=== PATIENT | male | born 1990 | race American Indian/Alaskan Native ===

== ENCOUNTER 2019-08-23 18:05 | Emergency (ER) | payer SELFPAY ==
[2019-08-23 19:33] VITALS: BP 124/72
--- NOTE | 2019-08-23 20:17 | Emergency Department Report ---
ED Male HPI - General Chief complaint: Urogenital-Male Stated complaint: URINE GERBER/PAIN Time Seen by Provider: 08/23/19 20:10 Source: patient Mode of arrival: Ambulatory Limitations: No Limitations - History of Present Illness MD Complaint: testicle pain, dysuria -: Gradual, days(s) (3) Location: penis Radiation: none Severity: mild Quality: aching, burning Consistency: constant Improves with: none Worsens with: none new medication discharge. denies: fever, nausea/vomiting - Related Data Sexually active: Yes Previous Rx's Medication Instructions Recorded Last Taken Type Azithromycin [Zithromax TAB] 1,000 mg PO ONCE #2 tablet 08/23/19 Unknown Rx ceFIXime [Cefixime] 400 mg PO ONCE #1 capsule 08/23/19 Unknown Rx metroNIDAZOLE [Flagyl] 2,000 mg PO ONCE #4 tablet 08/23/19 Unknown Rx Allergies Allergy/AdvReac Type Severity Reaction Status Date / Time No Known Allergies Allergy Unverified 08/23/19 18:06 ED Review of Systems ROS: Stated complaint: URINE GERBER/PAIN Other details as noted in HPI Comment: All other systems reviewed and negative ED Past Medical Hx - Past Medical History Previous Medical History?: No - Surgical History Additional Surgical History: LEFT SHOULDER - Medications Home Medications: Home Medications Medication Instructions Recorded Confirmed Last Taken Type Azithromycin [Zithromax TAB] 1,000 mg PO ONCE #2 tablet 08/23/19 Unknown Rx ceFIXime [Cefixime] 400 mg PO ONCE #1 capsule 08/23/19 Unknown Rx metroNIDAZOLE [Flagyl] 2,000 mg PO ONCE #4 tablet 08/23/19 Unknown Rx ED Physical Exam - General Limitations: No Limitations General appearance: alert, in no apparent distress - Head Head exam: Present: atraumatic, normocephalic - Eye Eye exam: Present: normal appearance, PERRL, EOMI Pupils: Present: normal accommodation - ENT ENT exam: Present: normal exam, mucous membranes moist - Neck Neck exam: Present: normal inspection - Respiratory Respiratory exam: Present: normal lung sounds bilaterally. Absent: respiratory distress - Cardiovascular Cardiovascular Exam: Present: regular rate, normal rhythm. Absent: systolic murmur, diastolic murmur, rubs, gallop - GI/Abdominal GI/Abdominal exam: Present: soft, normal bowel sounds - Rectal Rectal exam: Present: deferred - Extremities Exam Extremities exam: Present: normal inspection, normal capillary refill - Back Exam Back exam: Present: normal inspection. Absent: CVA tenderness (R), CVA tenderness (L) - Neurological Exam Neurological exam: Present: alert, oriented X3, CN II-XII intact - Psychiatric Psychiatric exam: Present: normal affect, normal mood. Absent: flat affect, manic - Skin Skin exam: Present: warm, dry, intact, normal color. Absent: rash ED Course Vital Signs 08/23/19 19:31 Temperature 97.9 F Pulse Rate 86 Respiratory 18 Rate Blood Pressure 124/72 O2 Sat by Pulse 99 Oximetry Critical care attestation.: If time is entered above; I have spent that time in minutes in the direct care of this critically ill patient, excluding procedure time. ED Disposition Clinical Impression: Dysuria, STD (sexually transmitted disease) Disposition: -01 TO HOME OR SELFCARE Is pt being admited?: No Does the pt Need Aspirin: No Condition: Stable Instructions: Sexually Transmitted Diseases (ED), Safe Sex (ED) Referrals: [facility] [Outside] - 3-5 Days
== END 2019-08-23 20:10 | disposition home or self-care (01) ==
LOC: ED 18:05
DX: A64 Unspecified sexually transmitted disease (principal); R30.0 Dysuria
CPT/HCPCS: 99282

== ENCOUNTER 2019-09-21 12:16 | Emergency (ER) | payer SELFPAY ==
[2019-09-21 12:32] VITALS: BP 125/75
--- NOTE | 2019-09-21 12:35 | Event Note ---
ED Screening Note Date of service: 09/21/19 Time: 12:31 ED Screening Note: 29 y o male presents with lac to head s/p Iron fall onto his head today, no loss of consciousness in some mild distress This initial assessment/diagnostic orders/clinical plan/treatment(s) is/are subject to change based on patients health status, clinical progression and re- assessment by fellow clinical providers in the ED. Further treatment and workup at subsequent clinical providers discretion. Patient/guardian urged not to elope from the ED as their condition may be serious if not clinically assessed and managed. Initial orders include: ACC eval staple repair
[2019-09-21] MEDS ORDERED: IBUPROFEN 800 MG TAB PO ONE ×2 (13:38→17:24)
--- NOTE | 2019-09-21 16:36 | Cat Scan Report ---
CT BRAIN: 09/21/2019 INDICATION / CLINICAL INFORMATION: dizziness / blurry vison s/p head injury. COMPARISON: None available. FINDINGS: BRAIN/INTRACRANIAL STRUCTURES: Unenhanced CT images of the brain demonstrate no evidence of acute int racranial abnormality. Ventricles and sulci are normal in size and shape. There is no evidence of intracranial hemorrhage or mass. There are no abnormal extra-axial fluid gail ections. There is evidence of left frontal scalp edema and laceration. Bone windows are unremarkable. EXTRACRANIAL STRUCTURES: Unremarkable. IMPRESSION: No acute intracranial abnormality. Scalp injury noted. All CT scans at this location are performed using dose reduction to ALARA by means of automated expos ure control. Signer Name: Remigio Hawkins MD Signed: 09/21/2019 4:32 PM Workstation Name: [id number]
--- NOTE | 2019-09-21 16:42 | Emergency Department Report ---
ED Head Trauma HPI - General Chief complaint: Head Injury Stated complaint: DIZZINESS Source: patient Mode of arrival: Ambulatory Limitations: No Limitations - History of Present Illness Initial comments: Patient is a 29-year-old male that presents emergency room with complaints of headache, dizziness and a head laceration. Patient states she was at home and a iron fell off the top shelf and hit him on the head. Patient states the bleeding was controlled with direct pressure. Patient states the headache is improved but the dizziness is still there. Patient denies loss of consciousness. Patient denies blurry vision. Patient states his tetanus is up-to-date. Patient denies nausea and vomiting. MD Complaint: head injury, head pain -: Sudden Location: temporal Loss of Consciousness: no Previous Trauma to this Area: No Place: home Radiation: none Severity: severe Severity scale (0 -10): 10 Quality: sharp Consistency: constant Provoking factors: none known Other Injuries: laceration Associated Symptoms: other (dizziness). denies: confusion, amnesia, repetitive questioning, vision changes, nausea, vomiting, syncope, numbness, weakness, tingling, neck pain - Related Data Previous Rx's Medication Instructions Recorded Last Taken Type Azithromycin [Zithromax TAB] 1,000 mg PO ONCE #2 tablet 08/23/19 Unknown Rx ceFIXime [Cefixime] 400 mg PO ONCE #1 capsule 08/23/19 Unknown Rx metroNIDAZOLE [Flagyl] 2,000 mg PO ONCE #4 tablet 08/23/19 Unknown Rx Sulfamethoxazole/Trimethoprim 1 each PO BID 5 Days #10 tablet 09/21/19 Unknown Rx [Bactrim DS TAB] Allergies/Adverse reactions: Allergies Allergy/AdvReac Type Severity Reaction Status Date / Time No Known Allergies Allergy Verified 09/21/19 12:17 ED Review of Systems ROS: Stated complaint: DIZZINESS Other details as noted in HPI Constitutional: denies: chills, fever Eyes: denies: eye pain, eye discharge, vision change ENT: denies: ear pain, throat pain Respiratory: denies: cough, shortness of breath, wheezing Cardiovascular: denies: chest pain, palpitations Endocrine: no symptoms reported Gastrointestinal: denies: abdominal pain, nausea, diarrhea Genitourinary: denies: urgency, dysuria Musculoskeletal: denies: back pain, joint swelling, arthralgia Skin: denies: rash, lesions Neurological: headache. denies: weakness, paresthesias Psychiatric: denies: anxiety, depression Hematological/Lymphatic: denies: easy bleeding, easy bruising ED Past Medical Hx - Past Medical History Previous Medical History?: No - Surgical History Past Surgical History?: Yes Additional Surgical History: LEFT SHOULDER - Family History Family history: no significant - Social History Smoking Status: Current Every Day Smoker Substance Use Type: None - Medications Home Medications: Home Medications Medication Instructions Recorded Confirmed Last Taken Type Azithromycin [Zithromax TAB] 1,000 mg PO ONCE #2 tablet 08/23/19 Unknown Rx ceFIXime [Cefixime] 400 mg PO ONCE #1 capsule 08/23/19 Unknown Rx metroNIDAZOLE [Flagyl] 2,000 mg PO ONCE #4 tablet 08/23/19 Unknown Rx Sulfamethoxazole/Trimethoprim 1 each PO BID 5 Days #10 tablet 09/21/19 Unknown Rx [Bactrim DS TAB] ED Physical Exam - General Limitations: No Limitations General appearance: alert, in no apparent distress - Head Head exam: Present: other (small laceration to the left temporal region) - Eye Eye exam: Present: normal appearance, PERRL Pupils: Present: normal accommodation - ENT ENT exam: Present: mucous membranes moist - Neck Neck exam: Present: normal inspection - Respiratory Respiratory exam: Present: normal lung sounds bilaterally. Absent: respiratory distress - Cardiovascular Cardiovascular Exam: Present: regular rate, normal rhythm. Absent: systolic murmur, diastolic murmur, rubs, gallop - GI/Abdominal GI/Abdominal exam: Present: soft, normal bowel sounds. Absent: distended, tenderness, guarding - Rectal Rectal exam: Present: deferred - Extremities Exam Extremities exam: Present: normal inspection - Back Exam Back exam: Present: normal inspection - Neurological Exam Neurological exam: Present: alert, oriented X3 - Psychiatric Psychiatric exam: Present: normal affect, normal mood - Skin Skin exam: Present: warm, dry, normal color, other (laceration noted to the left temporal region.). Absent: rash ED Course Vital Signs 09/21/19 12:30 Temperature 98.6 F Pulse Rate 110 H Respiratory 18 Rate Blood Pressure 125/75 O2 Sat by Pulse 96 Oximetry - Reevaluation(s) Reevaluation #1: Patient's left scalp laceration closed with 3 lisa. See procedure note. 09/21/19 17:10 Reevaluation #2: I discussed all results with patient. I discussed plan of care with patient. Patient is stable for discharge. Patient will be discharged home. Patient agrees with plan of care. I discussed discharge instructions with patient. Patient voiced understanding of discharge instructions. 09/21/19 17:16 - Laceration /Wound Repair Left Head Wound Location: head Wound Length (cm): 2 Wound's Depth, Shape: superficial Wound Explored: clean Irrigated w/ Saline (ccs): 100 Betadine Prep?: Yes Layer Closure?: No Sterile Dressing Applied?: Yes Progress: Patient's laceration of his left scalp draped and cleaned in a sterile fashion. Under sterile procedure and guidelines, 3 lisa were placed. Patient edges were well approximated. Patient tolerated procedure well. - Medical Decision Making Patient is a 29-year-old male who presents [facility] for head injury and is complex. Patient says an iron fell on his head. Patient has a 2 cm scalp black which was closed with 3 lisa. Procedure note on. Patient tolerated procedure well. Patient had a head CT due to the mechanism of injury and his complaint of headache and dizziness. Patient's head CT was negative. Patient stable for discharge. Patient discharged home. - Differential Diagnosis head injury. Head laceration. Dizziness. Headache. Critical care attestation.: If time is entered above; I have spent that time in minutes in the direct care of this critically ill patient, excluding procedure time. ED Disposition Clinical Impression: Dizziness Head injury Qualifiers: Encounter type: initial encounter Qualified Code(s): S09.90XA - Unspecified injury of head, initial encounter Headache Qualifiers: Headache type: post-traumatic Headache chronicity pattern: acute headache Intractability: not intractable Qualified Code(s): G44.319 - Acute post- traumatic headache, not intractable Scalp laceration Qualifiers: Encounter type: initial encounter Qualified Code(s): S01.01XA - Laceration without foreign body of scalp, initial encounter Disposition: -01 TO HOME OR SELFCARE Is pt being admited?: No Does the pt Need Aspirin: No Condition: Stable Instructions: Elbow Fracture in Children (ED), Laceration (ED), Concussion (ED), Minor Head Injury (ED), Dizziness (ED), Staple Care (ED) Additional Instructions: Patient to keep site clean and dry. Patient to follow up with primary care in 2-3 days. Patient to have lisa removed in 5-7 days. Patient to return to your condition worsens. Patient admits to cigarettes. Patient to take Tylenol or ibuprofen when necessary for pain. Patient to rest. Patient to increase water. Prescriptions: Sulfamethoxazole/Trimethoprim [Bactrim DS TAB] 1 each PO BID 5 Days #10 tablet Referrals: JUSTIN YEUNG MD [Primary Care Provider] - 3-5 Days Time of Disposition: 17:21
[2019-09-21] MEDS ORDERED: IBUPROFEN 800 MG TAB ONE (17:24)
== END 2019-09-21 17:36 | disposition home or self-care (01) ==
LOC: ED 12:16
DX: S01.01XA Laceration without foreign body of scalp, initial encounter (principal); G44.319 Acute post-traumatic headache, not intractable; F17.200 Nicotine dependence, unspecified, uncomplicated; R42 Dizziness and giddiness; Z79.899 Other long term (current) drug therapy; W18.09XA Striking against other object with subsequent fall, initial encounter; Y93.89 Activity, other specified; Y92.098 Other place in other non-institutional residence as the place of occurrence of the external cause; Y99.8 Other external cause status
CPT/HCPCS: 70450

== ENCOUNTER 2019-10-04 12:56 | Emergency (ER) | payer SELFPAY ==
[2019-10-04 13:01] VITALS: BP 119/78
--- NOTE | 2019-10-04 13:05 | Emergency Department Report ---
Suture/Staple Removal - [facility] Chief Complaint: Laceration/Recheck/Suture Stated Complaint: HEAD LISA REMOVED Time Seen by Provider: 10/04/19 13:00 When Sutures or [place] Placed: 8-10 Days Ago Wound Location: left forehead ED Review of Systems ROS: Stated complaint: HEAD LISA REMOVED Other details as noted in HPI Constitutional: denies: chills, fever Eyes: denies: eye pain, eye discharge, vision change ENT: denies: ear pain, throat pain Respiratory: denies: cough, shortness of breath, wheezing Cardiovascular: denies: chest pain, palpitations Endocrine: no symptoms reported Gastrointestinal: denies: abdominal pain, nausea, diarrhea Genitourinary: denies: urgency, dysuria Musculoskeletal: denies: back pain, joint swelling, arthralgia Skin: denies: rash, lesions Neurological: denies: headache, weakness, paresthesias Psychiatric: denies: anxiety, depression Hematological/Lymphatic: denies: easy bleeding, easy bruising ED Past Medical Hx - Past Medical History Previous Medical History?: No - Surgical History Past Surgical History?: Yes Additional Surgical History: LEFT SHOULDER - Social History Smoking Status: Current Every Day Smoker Substance Use Type: Alcohol - Medications Home Medications: Home Medications Medication Instructions Recorded Confirmed Last Taken Type Azithromycin [Zithromax TAB] 1,000 mg PO ONCE #2 tablet 08/23/19 Unknown Rx ceFIXime [Cefixime] 400 mg PO ONCE #1 capsule 08/23/19 Unknown Rx metroNIDAZOLE [Flagyl] 2,000 mg PO ONCE #4 tablet 08/23/19 Unknown Rx Sulfamethoxazole/Trimethoprim 1 each PO BID 5 Days #10 tablet 09/21/19 Unknown Rx [Bactrim DS TAB] Suture Removal Exam - Exam General: Vital signs noted. No distress. Alert and acting appropriately. Wound: No Pathologic Erythema, No Tenderness, No Drainage, No Pus, No Wound Dehiscence Other Systems: All other systems reviewed and are unremarkable. ED Course Vital Signs 10/04/19 13:00 Temperature 97.7 F Pulse Rate 68 Respiratory 16 Rate Blood Pressure 119/78 O2 Sat by Pulse 100 Oximetry - Reevaluation(s) Reevaluation #1: 10/04/19 13:03 Patient is speaking in full sentences with no signs of distress noted. ED Recheck [facility] - Medical Decision Making Total of 3 lisa has been removed. Patient tolerated well. Normal healing. Patient was instructed to Follow-up with a primary care doctor in 3-5 days or if symptoms worsen and continue return to emergency room as soon as possible. At time of discharge, the patient does not seem toxic or ill in appearance. No acute signs of distress noted. Patient agrees to discharge treatment plan of care. No further questions noted by the patient. Critical care attestation.: If time is entered above; I have spent that time in minutes in the direct care of this critically ill patient, excluding procedure time. ED Disposition Clinical Impression: Encounter for staple removal Disposition: DC-01 TO HOME OR SELFCARE Is pt being admited?: No Does the pt Need Aspirin: No Condition: Stable Additional Instructions: Follow-up with a primary care doctor in 3-5 days or if symptoms worsen and continue return to emergency room as soon as possible. Referrals: PRIMARY CARE, [Referring] - 3-5 Days PIPPA LEDEZMA MD [Staff Physician] - 3-5 Days [facility] [Outside] - 3-5 Days [facility] [Outside] - 3-5 Days Forms: Work/School Release Form(ED)
== END 2019-10-04 13:30 | disposition home or self-care (01) ==
LOC: ED 12:56
DX: Z48.02 Encounter for removal of sutures (principal); F17.200 Nicotine dependence, unspecified, uncomplicated